=== PATIENT | female | born 1940 | race African-American/Black ===

== ENCOUNTER 2023-11-24 13:50 | Outpatient (AMB) | payer MEDICARE, SELFPAY ==
--- NOTE | 2023-11-24 14:06 | HO.NEPHOV ---
Vital Signs 11/24/23 14:17 Height 5 ft 10 in Weight 167 lb 4 oz BMI 24.0 BP 138/64 Blood Pressure Location Lt brachial Position Sitting Pulse 74 Pulse Source Pulse Oximeter Pulse Oximetry (%) 98 Oxygen Delivery Method Room Air Intake Visit Reasons: Continuing care-CKD/ Confirmed Phlebotomist Supervisor/Instructor Required: No Accompanied by: Self / Same As Patient Allergies No Known Allergies Allergy (Verified 11/24/23 14:15) HPI Comments Details: Dominga is a pleasant 83-year-old woman with a history of CKD 3 in a setting of longstanding diabetes mellitus hypertension. From renal standpoint she has been doing well. She has been diagnosed with an neuropathy. Blood sugar has been well controlled. [facility] Family History Brother Diabetes Mother Diabetes Hypertension Father Hypertension Physical Exam Vital Signs: Last Vital Signs Pulse 74 11/24/23 14:17 BP 138/64 11/24/23 14:17 Pulse Ox 98 11/24/23 14:17 Oxygen Delivery Method Room Air 11/24/23 14:17 BMI result Body Mass Index 24.0 Const General: comfortable Nutritional Appearance: well nourished Orientation/consciousness: patient oriented x3 HEENT Head: No normal to inspection Mouth: moist mucous membranes Neck Neck: Yes supple and Yes no JVD Resp Auscultation: clear to auscultation bilaterally, no rales and rub present Cardio Jugular venous distension: no JVD Palpation: no palpable S3 and no palpable S4 Heart sounds: no rubs GI Palpation (GI): Soft to palpation and nontender Percussion: No Fluid wave present General: Yes no CVA tenderness Back/Spine/Pelvis Back: no CVA tenderness Skin General skin exam: no rashes or lesions noted Neuro General: patient oriented x3 Extrem General: Yes no pedal edema and No clubbing Results Reviewed Results Reviewed: Labs pending Nephrology Results: No Data to Display Assessment & Plan Assessment & Plan (1) CKD (chronic kidney disease): Code(s): N18.9 - Chronic kidney disease, unspecified Category: Medical Plan Rj has stage 3 chronic kidney disease in the setting of longstanding diabetes mellitus and hypertension. Overall renal function has been stable to baseline. Recent creatinine is around 1.5 mg/dL. Continue with low dose of losartan for renal protection. History of hypertension Blood pressure is well controlled. Continue to avoid hypotension. 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 Seen by Hematology Mild anemia no absolute indication for Epogen yet. Orders: Orders UA and rflx microscopic 5 Months N18.9 - Chronic kidney disease, unspecified Complete Blood Count Auto Diff 5 Months N18.30 - Chronic kidney disease, stage 3 unspecified, N18.9 - Chronic kidney disease, unspecified Creatinine Urine 5 Months N05.9 - 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, N18.9 - Chronic kidney disease, unspecified Basic Metabolic Panel 5 Months N18.9 - Chronic kidney disease, unspecified Total Protein Urine Random 5 Months N18.9 - Chronic kidney disease, unspecified Coding Level of Care Code Est Pt Level 4 (98082) Diagnoses CKD (chronic kidney disease) N18.9
[2023-11-24 14:17] VITALS: BP 138/64; PULSE 74; O2SAT 98; BMI 24.0
== END 2023-11-24 14:28 | disposition home or self-care (01) ==
LOC: HO.HKAE 13:50
PROVIDERS: PCP Internal Medicine Pulmonary Disease; Referring Provider Internal Medicine Pulmonary Disease; Visit Provider Internal Medicine Hypertension Specialist
DX: N18.9 Chronic kidney disease, unspecified (principal)
CPT/HCPCS: 99214

== ENCOUNTER → 2023-11-24 13:50 | Outpatient (BNVA) | payer MEDICARE, SELFPAY | PROVIDERS: PCP Internal Medicine Pulmonary Disease; Referring Provider Internal Medicine Pulmonary Disease; Visit Provider Internal Medicine Hypertension Specialist | DX: E11.22 Type 2 diabetes mellitus with diabetic chronic kidney disease (principal); I12.9 Hypertensive chronic kidney disease with stage 1 through stage 4 chronic kidney disease, or unspecified chronic kidney disease; N18.30 Chronic kidney disease, stage 3 unspecified | CPT/HCPCS: 99212 ==

== ENCOUNTER 2024-04-26 13:25 | Outpatient (AMB) | payer MEDICARE, SELFPAY ==
[2024-04-26 13:33] VITALS: BP 118/56; PULSE 60; O2SAT 98; BMI 24.2
--- NOTE | 2024-04-26 13:33 | HO.NEPHOV_ITS ---
Vital Signs 04/26/24 13:33 Height 5 ft 10 in Weight 169 lb BMI 24.2 BP 118/56 L Blood Pressure Location Lt brachial Position Sitting Pulse 60 Pulse Source Pulse Oximeter Pulse Oximetry (%) 98 Oxygen Delivery Method Room Air Intake Visit Reasons: Follow up, Oct Aging Department Supervisor Required: No Accompanied by: Self / Same As Patient Allergies No Known Allergies Allergy (Verified 04/26/24 13:36) Medication List - Last Reconciled 04/26/24 by Inocencio Avila MD atorvastatin 20 mg PO DAILY empagliflozin (Jardiance) 10 mg PO DAILY ferrous sulfate 325 mg PO DAILY glipizide ER 10 mg PO DAILY losartan 25 mg PO DAILY propranolol 20 mg PO BID sitagliptin phosphate (Januvia) 50 mg PO DAILY triamterene 18.75 mg PO DAILY HPI Comments Details: Dominga is a pleasant 83-year-old woman with a history of CKD 3 in a setting of longstanding diabetes mellitus hypertension. From renal standpoint she has been doing well. She has been diagnosed with an neuropathy. Blood sugar has been well controlled. 04/26/24 Jardiance has been added around January 2024 Recent A1C was 8.2% [facility] Family History Brother Diabetes Mother Diabetes Hypertension Father Hypertension Physical Exam Vital Signs: Last Vital Signs Pulse 60 04/26/24 13:33 Pulse Ox 98 04/26/24 13:33 Oxygen Delivery Method Room Air 04/26/24 13:33 BMI result Body Mass Index 24.2 Const General: comfortable; No acute distress Orientation/consciousness: patient oriented x3 Eyes General: appearance normal, both eyes and all related structures Visual Hernandez: normal visual hernandez by confrontation Neck Neck: Yes supple and Yes no JVD Resp Effort & Inspection: normal respiratory effort and respiratory effort not decreased Auscultation: rhonchi Cardio Palpation: no palpable S3 and no palpable S4 Heart sounds: no rubs GI Inspection: Yes normal to inspection Palpation (GI): Soft to palpation Percussion: Yes normal to percussion Auscultation: normal bowel sounds General: Yes no CVA tenderness Back/Spine/Pelvis Back: no CVA tenderness Skin General skin exam: no petechiae and no purpura Neuro General: patient oriented x3 and no focal motor deficits Extrem General: No clubbing and No edema Results Reviewed Results Reviewed: Cr 1.3 Nephrology Results: No Data to Display Assessment & Plan Assessment & Plan (1) CKD (chronic kidney disease): Code(s): N18.9 - Chronic kidney disease, unspecified Category: Medical Plan Dominga has stage 3 chronic kidney disease in the setting of longstanding diabetes mellitus and hypertension. Overall renal function has been stable to baseline. Recent creatinine is around 1.6 mg/dL. Continue with low dose of losartan for renal protection. History of hypertension Blood pressure is well controlled. Continue to avoid hypotension. 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 Seen by Hematology Mild anemia no absolute indication for Epogen yet. Recent HgB is 11.4gm/dL Orders: Orders Complete Blood Count Auto Diff 6 Months N18.9 - Chronic kidney disease, unspecified Basic Metabolic Panel 6 Months N18.9 - Chronic kidney disease, unspecified Coding Level of Care Code Est Pt Level 4 (26421) Diagnoses CKD (chronic kidney disease) N18.9
== END 2024-04-26 13:49 | disposition home or self-care (01) ==
LOC: HO.HKAE 13:25
PROVIDERS: PCP Internal Medicine Pulmonary Disease; Visit Provider Internal Medicine Hypertension Specialist
DX: I12.9 Hypertensive chronic kidney disease with stage 1 through stage 4 chronic kidney disease, or unspecified chronic kidney disease (principal); E11.22 Type 2 diabetes mellitus with diabetic chronic kidney disease; N18.30 Chronic kidney disease, stage 3 unspecified
CPT/HCPCS: 99214

== ENCOUNTER → 2024-04-26 13:25 | Outpatient (BNVA) | payer MEDICARE, SELFPAY | PROVIDERS: PCP Internal Medicine Pulmonary Disease; Visit Provider Internal Medicine Hypertension Specialist | DX: E11.22 Type 2 diabetes mellitus with diabetic chronic kidney disease (principal); I12.9 Hypertensive chronic kidney disease with stage 1 through stage 4 chronic kidney disease, or unspecified chronic kidney disease; N18.30 Chronic kidney disease, stage 3 unspecified | CPT/HCPCS: 99212 ==

== ENCOUNTER 2024-10-25 13:23 | Outpatient (AMB) | payer MEDICARE, SELFPAY ==
[2024-10-25 13:30] VITALS: BP 118/68; PULSE 62; O2SAT 98; BMI 24.6
--- NOTE | 2024-10-25 13:30 | HO.NEPHOV ---
Vital Signs 10/25/24 13:30 Height 5 ft 10 in Weight 171 lb 4 oz BMI 24.6 BP 118/68 Blood Pressure Location Rt brachial Position Sitting Pulse 62 Pulse Source Pulse Oximeter Pulse Oximetry (%) 98 Oxygen Delivery Method Room Air Intake Visit Reasons: 6mon follow up/ Conf Allergies No Known Allergies Allergy (Verified 10/25/24 13:32) Medication List - Last Reconciled 10/25/24 by Inocencio Avila MD atorvastatin 20 mg PO DAILY empagliflozin (Jardiance) 10 mg PO DAILY ferrous sulfate 325 mg PO DAILY glipizide ER 10 mg PO DAILY losartan 25 mg PO DAILY propranolol 20 mg PO BID sitagliptin phosphate (Januvia) 50 mg PO DAILY triamterene 18.75 mg PO DAILY HPI Comments Details: Dominga is a pleasant 83-year-old woman with a history of CKD 3 in a setting of longstanding diabetes mellitus hypertension. From renal standpoint she has been doing well. She has been diagnosed with an neuropathy. Blood sugar has been well controlled. 04/26/24 Jardiance has been added around January 2024;Recent A1C was 8.2% 10/25/24 Here for follow up. Doing Ok. Recently has a fall and went to ER [facility] Family History Brother Diabetes Mother Diabetes Hypertension Father Hypertension Physical Exam Vital Signs: Last Vital Signs Pulse 62 10/25/24 13:30 BP 118/68 10/25/24 13:30 Pulse Ox 98 10/25/24 13:30 Oxygen Delivery Method Room Air 10/25/24 13:30 BMI result Body Mass Index 24.6 No orthostatic BP changes Const General: comfortable; No acute distress Orientation/consciousness: patient oriented x3 Eyes General: appearance normal, both eyes and all related structures Visual Hernandez: normal visual hernandez by confrontation Neck Neck: Yes supple and Yes no JVD Resp Effort & Inspection: normal respiratory effort and respiratory effort not decreased Cardio Palpation: no palpable S3 and no palpable S4 Heart sounds: no rubs GI Inspection: Yes normal to inspection Palpation (GI): Soft to palpation Percussion: Yes normal to percussion Auscultation: normal bowel sounds General: Yes no CVA tenderness Back/Spine/Pelvis Back: no CVA tenderness Skin General skin exam: no petechiae and no purpura Neuro General: patient oriented x3 and no focal motor deficits Extrem General: No clubbing and No edema Results Reviewed Nephrology Results: No Data to Display Assessment & Plan Assessment & Plan (1) CKD (chronic kidney disease): Code(s): N18.9 - Chronic kidney disease, unspecified Category: Medical Plan Dominga has stage 3 chronic kidney disease in the setting of longstanding diabetes mellitus and hypertension. Overall renal function has been stable to baseline. Recent creatinine is around 1.5 mg/dL. Continue with low dose of losartan for renal protection. Stay on Jardiance History of hypertension Blood pressure is well controlled. Continue to avoid hypotension. 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 Seen by Hematology Mild anemia no absolute indication for Epogen yet. Recent HgB is 10.4gm/dL No changes were made Coding Level of Care Code Est Pt Level 4 (08980) Diagnoses CKD (chronic kidney disease) N18.9
--- OUTSIDE RECORDS SUMMARY | 2024-10-25 15:48 | XMS_ITS | Clinical Summary ---
Author Organization [facility] Address [address] [place] [address] Phone Care Team Providers Care Lap Regulator Name Role Phone Gold Callaway MD Primary Care Provider [phone] Allergies No known active allergies Medications atorvastatin (LIPITOR) 20 mg tablet Take 20 mg by mouth daily. 01/31/2021 Active ferrous sulfate 143 mg (45 mg iron) tablet extended release Take 143 mg by mouth daily. Active glipiZIDE (GLUCOTROL XL) 10 mg 24 hr tablet Take 1 tablet (10 mg total) by mouth daily. 04/07/2022 Active losartan (COZAAR) 50 mg tablet Take 25 mg by mouth daily. 01/06/2021 Active meclizine (ANTIVERT) 25 mg tablet Take 1 tablet (25 mg total) by mouth every 6 (six) hours as needed for dizziness. 02/13/2021 Active triamterene-hyd roCHLOROthiazid e (MAXZIDE-25) 37.5-25 mg per tablet Take 1 tablet by mouth daily. 11/17/2020 Active propranoloL (INDERAL) 20 mg tablet Take 1 tablet (20 mg total) by mouth 2 (two) times a day. 02/13/2021 Active multivitamin (MULTIPLE VITAMINS ORAL) Take by mouth. 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 Encounters Date Type Department Care Team Description 09/13/2024 4:13 PM EDT - 09/13/2024 7:04 PM EDT Emergency [facility] Emergency [address] [place] [id number] Cal Craig MD Lightheadedness (Primary Dx); Dehydration Discharge Disposition: Home or Self Care 08/12/2024 12:06 PM EST - 08/12/2024 1:37 PM EST Emergency [facility] Emergency [address] [place] [id number] Tristan Guerrero DO Contusion of face, initial encounter (Primary Dx) Discharge Disposition: Home or Self Care from Last 3 Months Medical History Medical History Date Comments Diabetes mellitus ([facility] V24, [facility] V28) Hypertension Renal disorder Renal disorder DX:Renal disorde r Hypertension DX:Hypertension Diabetes mellitus ([facility] V24, [facility] V28) DX:Diabetes mellitus ([facility]) Social History Tobacco Use Types Packs/Day Years Used Date Smoking Tobacco: Never Smokeless Tobacco: Never Tobacco Cessation:Counseling Given: Not Answered Alcohol Use Standard Drinks/Week Comments Never 0 (1 standard drink = 0.6 oz pur e alcohol) Comments Unknown Sex and Gender Information Value Date Recorded Sex Assigned at Female 08/12/2024 12:36 PM EST Legal Sex Female 10:51 AM EST Gender Identity Female 08/12/2024 12:36 PM EST Sexual Orientation Straight 09/13/2024 5: 39 PM EDT Obstetrics History Last Filed Vital Signs Vital Sign Reading Time Taken Comments Blood Pressure 144/63 09/13/2024 7:04 PM EDT Pulse 70 09/13/2024 4:15 PM EDT Temperature 36.9 ??C (98.5 ??F) 09/13/2024 4:15 PM ED T Respiratory Rate 18 09/13/2024 4:15 PM EDT Oxygen Saturation 100% 09/13/2024 4:15 PM EDT Inhaled Oxygen Concentration - - Weight 77.1 kg (170 lb) 09/13/2024 4:15 PM EDT Height 177.8 cm (5' 10 ) 09/13/2024 4:15 PM EDT Body Mass Index 24.39 09/13/2024 4:15 PM EDT Plan of Treatment Health Maintenance Due Date Last Done Comments Diabetes: Annual Foot Exam 1950 Diabetes: Annual Retina Eye Exam 1950 DTaP,Tdap,and Td Vaccines (1 - Tdap) 1958 RSV Immunization Adult Patients (1 - 1-dose 75+ series) 2014 Pneumococcal Vaccine: 50+ Years (2 of 2 - PPSV23) 05/07/2020 03/12/2020 Depression Screening 06/11/2022 Falls Risk Assessment 06/11/2022 Medicare Annual Wellness Visit 06/11/2022 Osteoporosis Screening (Bone Density Screening) 06/11/2022 Social Influencers of Health Screening 06/11/2022 Diabetes: Annual Urine Albumin-Creatinine Ratio (uACR) 06/12/2022 08/13/2020, 08/10/2019, 06/13/2019 COVID-19 Vaccine ( season) 2024 04/03/2024, 04/17/2022, 11/19/2021, Additional history exists Diabetes: Blood Sugar Control Test (HGBA1C) 11/20/2024 05/23/2024, 01/18/2024, 08/10/2019, Additional history exists Influenza Vaccine (Season Ended) 2025 04/06/2023, 03/30/2022, 04/02/2021, Additional history exists Cholesterol Screening (Lipid Panel) 08/13/2025 08/13/2020, 08/10/2019, 10/08/2017 Diabetes: Annual GFR (Glomerular Filtration Rate) 09/13/2025 09/13/2024, 04/20/2024, 04/20/2024, Additional history exists Zoster Vaccines Completed 12/01/2023, 09/24/2023 HIB Vaccines Aged Out No longer eligi ble based on patient's age to complete this topic HPV Vaccines Aged Out No longer eligi ble based on patient's age to complete this topic Hepatitis A Vaccines Aged Out No long er eligible based on patient's age to complete this topic Hepatitis B Vaccines Aged Out No long er eligible based on patient's age to complete this topic IPV Vaccines Aged Out No longer eligi ble based on patient's age to complete this topic MMR Vaccines Aged Out No longer eligi ble based on patient's age to complete this topic Meningococcal ACWY Vaccine Aged Out N o longer eligible based on patient's age to complete this topic Meningococcal B Vaccine Aged Out No l onger eligible based on patient's age to complete this topic RSV Immunization Patients Under 20 months Aged Out No longer eligible based on patient's age to complete this topic Varicella Vaccines Aged Out No longer eligible based on patient's age to complete this topic Procedures Procedure Name Priority Date/Time Associated Diagnosis Comments URINALYSIS WITH REFLEX MICROSCOPIC AND CULTURE STAT 09/13/2024 5:51 PM EDT URINALYSIS WITH REFLEX MICROSCOPIC AND CULTURE STAT 09/13/2024 5:51 PM EDT RHYTHM ECG, REPORT Routine 09/13/2024 5: 37 PM EDT CBC WITH AUTO DIFFERENTIAL STAT 09/13/2024 4:27 PM EDT TROPONIN I HIGH SENSITIVITY STAT 09/13/2024 4:27 PM EDT COMPREHENSIVE METABOLIC PANEL STAT 09/13/2024 4:27 PM EDT CBC AND DIFFERENTIAL STAT 09/13/2024 4:27 PM EDT POCT GLUCOSE BLOOD Routine 09/13/2024 4: 26 PM EDT [id number], RSV, FLU A AND B QUALITATIVE RT-PCR, INTERNAL LAB STAT 09/13/2024 4:26 PM EDT ECG 12-LEAD Routine 09/13/2024 4:[address] MAXILLOFACIAL WO CONTRAST STAT 08/12/2024 12:[address] HEAD WO CONTRAST STAT 08/12/2024 1 2:36 PM EST from Last 3 Months Results * (ABNORMAL) Urinalysis with reflex microscopic and culture (09/13/2024 5:51 PM EDT) Color, Urine Yellow Colorless, Yellow LAB URINALYSIS - AUTOMATED METHOD 09/13/2024 5:58 PM EDT [facility] Clarity, Urine Clear Clear LAB URINALYSIS - AUTOMATED METHOD [facility]24 [facility] Specific [place] Urine 1.010 1.005 - 1.030 LAB URINALYSIS - AUTOMATED METHOD 09/13/2024 5:58 [facility] pH, Urine 5.5 5.0 - 8.0 pH LAB URINALYSIS - AUTOMATED METHOD 09/13/2024 5:58 PM [facility] Leukocytes, Urine Negative Negative WBCs/mcL LAB URINALYSIS - AUTOMATED METHOD 09/13/2024 5:58 PM [facility] Nitrite, Urine Negative Negative LAB URINALYSIS - AUTOMATED METHOD 09/13/2024 5:58 [facility] Protein, Urine Negative Negative mg/dL LAB URINALYSIS - AUTOMATED METHOD 09/13/2024 5:58 PM [facility] Glucose, Urine >=1000(A) Negative mg/dL LAB URINALYSIS - AUTOMATED METHOD 09/13/2024 5:58 PM [facility] Ketones, Urine Negative Negative mg/dL LAB URINALYSIS - AUTOMATED METHOD 09/13/2024 5:58 PM [facility] Blood, Urine Negative Negative mg/dL LAB URINALYSIS - AUTOMATED METHOD 09/13/2024 5:58 PM [facility] Urine Urine specimen obtained by clean catch procedure / Unknown Non-blood Collection / Unknown 09/13/2024 5:51 PM EDT 09/13/2024 5:54 PM EDT us Cal Craig MD LAB URINE ORDERABLES Final Resu lt [facility] [address] [place] [address], [place] [phone] * RHYTHM ECG, REPORT (09/13/2024 5:37 PM EDT) Cal Ervin MD - 09/13/2024 5:37 PM EDT Cal Craig MD ? 09/13/2024 ??6:43 PM ECG Rhythm Interpretation and Report Date/Time: 09/13/2024 5:37 PM Performed by: Cal Craig MD Authorized by: Cal Craig MD ?? ECG interpreted by ED Physician in the absence of a oil and gas recruiter: yes ?? Rate: ??ECG rate: ??65 ??ECG rate assessment: normal ?? Rhythm: ??Rhythm: sinus rhythm ?? Ectopy: ??Ectopy: none ?? QRS: ??QRS axis: ??Normal ??QRS intervals: ??Normal ??QRS conduction: normal ?? ST segments: ??ST segments: ??Normal T waves: ??T waves: normal ?? Q waves: ??Abnormal Q-waves: not present ?? Other findings: ??Other findings: LVH ?? us Cal Craig MD ECG ORDERABLES Final Result * Troponin I high sensitivity (09/13/2024 4:27 PM EDT) Pathologist [facility] High Sensitivity Troponin I 6 0 - 14 ng/L LAB CHEMISTRY METHOD 09/13/2024 4:59 PM EDT [facility] Blood Venous blood specimen / Unknown Venipuncture / Unknown 09/13/2024 4:27 PM EDT 09/13/2024 4:31 PM EDT Narrative [facility] - 09/13/2024 4:59 PM EDT HSTnI results stratify to HIGH RISK category if any value >100 ng/L or delta at 1 hour is greater than or equal to 15 ng/L (male and female). Note: Delta values are not applicable if symptoms began more than 12 hours pre-arrival. Risk stratification should include the calculation of the HEART score. Testing performed using [employer] Access AccuTnI+3 Assay. us Cal Craig MD LAB BLOOD ORDERABLES Final Resu lt [facility] [address] [place] [address], [place] [phone] * (ABNORMAL) CBC auto differential (09/13/2024 4:27 PM EDT) [facility] WBC 5.9 4.0 - 10.5 K/mcL LAB HEMETOLOGY METHOD 09/13/2024 4:35 PM EDT [facility] RBC 3.87(L) 4.20 - 5.40 M/mcL LAB HEMETOLOGY METHOD 09/13/2024 4:35 PM EDT [facility] Hemoglobin 11.3(L) 12.5 - 16.0 g/dL LAB HEMETOLOGY METHOD 09/13/2024 4:35 PM EDT [facility] Hematocrit 34.8(L) 37.0 - 47.0 % LAB HEMETOLOGY METHOD 09/13/2024 4:35 PM EDT [facility] MCV 89.9 78.0 - 100.0 FL LAB HEMETOLOGY METHOD 09/13/2024 4:35 PM EDT [facility] MCH 29.2 25.0 - 33.0 pcg LAB HEMETOLOGY METHOD 09/13/2024 4:35 PM EDT [facility] MCHC 32.5 32.0 - 36.0 g/dL LAB HEMETOLOGY METHOD 09/13/2024 4:35 PM EDT [facility] RDW 12.7 12.1 - 16.2 % LAB HEMETOLOGY METHOD 09/13/2024 4:35 PM [facility] Platelets 195 150 - 450 K/mcL LAB HEMETOLOGY METHOD 09/13/2024 4:35 PM [facility] MPV 11.5(H) 7.4 - 11.4 FL LAB HEMETOLOGY METHOD 09/13/2024 4:35 PM [facility] Neutrophils Relative 62.0 44.0 - 74.0 % LAB HEMETOLOGY METHOD 09/13/2024 4:35 PM [facility] Lymphocytes Relative 26.3 20.0 - 48.0 % LAB HEMETOLOGY METHOD 09/13/2024 4:35 PM [facility] Monocytes Relative 6.8 2.0 - 12.0 % LAB HEMETOLOGY METHOD 09/13/2024 4:35 PM [facility] Eosinophils Relative 4.3 0.0 - 6.0 % LAB HEMETOLOGY METHOD 09/13/2024 4:35 PM [facility] Basophils Relative 0.3 0.0 - 2.0 % LAB HEMETOLOGY METHOD 09/13/2024 4:35 PM [facility] Neutrophils Absolute 3.63 1.80 - 7.80 K/mcL LAB HEMETOLOGY METHOD 09/13/2024 4:35 PM [facility] Lymphocytes Absolute 1.54 1.00 - 3.20 K/mcL LAB HEMETOLOGY METHOD 09/13/2024 4:35 PM [facility] Monocytes Absolute 0.40 0.00 - 0.80 K/mcL LAB HEMETOLOGY METHOD 09/13/2024 4:35 PM [facility] Eosinophils Absolute 0.25 0.00 - 0.50 K/mcL LAB HEMETOLOGY METHOD 09/13/2024 4:35 PM EDT [facility] Basophils Absolute <0.03 0.00 - 0.20 K/mcL LAB HEMETOLOGY METHOD 09/13/2024 4:35 PM EDT [facility] Blood Venous blood specimen / Unknown Venipuncture / Unknown 09/13/2024 4:27 PM EDT 09/13/2024 4:31 PM EDT us Cal Craig MD LAB BLOOD ORDERABLES Final Resu lt [facility] [address] [place] [address], [place] [phone] * (ABNORMAL) Comprehensive metabolic panel (09/13/2024 4:27 PM EDT) Sodium 135 135 - 145 mmol/L LAB CHEMISTRY METHOD 09/13/2024 4:51 PM [facility] Potassium 3.8 3.5 - 5.1 mmol/L LAB CHEMISTRY METHOD 09/13/2024 4:51 PM [facility] Chloride 99 98 - 107 mmol/L LAB CHEMISTRY METHOD 09/13/2024 4:51 PM [facility] CO2 29 24 - 32 mmol/L LAB CHEMISTRY METHOD 09/13/2024 4:51 PM [facility] Anion Gap 7 5 - 14 LAB CHEMISTRY METHOD 09/13/2024 4:51 PM [facility] Glucose 279(H) 70 - 199 mg/dL LAB CHEMISTRY METHOD 09/13/2024 4:51 PM [facility] BUN 34(H) 7 - 17 mg/dL LAB CHEMISTRY METHOD 09/13/2024 4:51 PM [facility] Creatinine 1.48(H) 0.50 - 1.00 mg/dL LAB CHEMISTRY METHOD 09/13/2024 4:51 PM [facility] eGFR 35(L) >=60 mL/min/1. 73m2 LAB CHEMISTRY METHOD 09/13/2024 4:51 PM [facility] Comment:Calculation based on the??Chronic Kidney Disease Epidemiology Collaboration (CKD-EPI) equation refit??without adjustment for race. BUN/Creatinine Ratio 23.0(H) 12.0 - 20.0 LAB CHEMISTRY METHOD 09/13/2024 4:51 PM [facility] Calcium 10.0 8.4 - 10.2 mg/dL LAB CHEMISTRY METHOD 09/13/2024 4:51 PM [facility] AST (SGOT) 26 5 - 40 unit/L LAB CHEMISTRY METHOD 09/13/2024 4:51 PM [facility] ALT (SGPT) 16 7 - 52 unit/L LAB CHEMISTRY METHOD 09/13/2024 4:51 PM [facility] Alkaline Phosphatase 82 34 - 104 unit/L LAB CHEMISTRY METHOD 09/13/2024 4:51 PM [facility] Total Protein 7.6 6.4 - 8.5 g/dL LAB CHEMISTRY METHOD 09/13/2024 4:51 PM [facility] Albumin 4.2 3.5 - 5.0 g/dL LAB CHEMISTRY METHOD 09/13/2024 4:51 PM [facility] Total Bilirubin 0.8 0.3 - 1.0 mg/dL LAB CHEMISTRY METHOD 09/13/2024 4:51 PM [facility] Blood Venous blood specimen / Unknown Venipuncture / Unknown 09/13/2024 4:27 PM EDT 09/13/2024 4:31 PM EDT Cal Craig MD LAB BLOOD ORDERABLES Final Resu lt [facility] [address] [place] [address], [place] [phone] * [id number], RSV, Influenza A and B qualitative RT-PCR (09/13/2024 4:26 PM EDT) Influenza A PCR Negative Negative LAB MOLECULAR DIAGNOSTICS METHOD 09/13/2024 5:11 PM EDT [facility] Influenza B PCR Negative Negative LAB MOLECULAR DIAGNOSTICS METHOD 09/13/2024 5:11 PM EDT [facility] RSV PCR Negative Negative LAB MOLECULAR DIAGNOSTICS METHOD 09/13/2024 5:11 PM EDT [facility] SARS COV-2 Negative Negative LAB MOLECULAR DIAGNOSTICS METHOD 09/13/2024 5:11 PM EDT [facility] Swab Nasopharyngeal structure / Unknown Non-blood Collection / Unknown 09/13/2024 4:26 PM EDT 09/13/2024 4:32 PM EDT Narrative [facility] - 09/13/2024 5:11 PM EDT This test has been authorized by FDA under an emergency used authorization (EUA). This EUA will cease to be effective when declared by [facility] that circumstances exist to justify its termination under section 564(bB)(2) of the Federal Food, Drug, and Cosmetic Act (The Act) 21 U.S.C. 360bbb 30,or when the EUA is revoked under section 564 (g) of the Act. Testing was performed using the [employer] Xpert Xpress SARS-CoV2/FLU/RSV test. Negative results do not preclude SARS COV-2 test infection and should not be used as a sole basis for treatment or other patient management decisions. Negative results must be combined with clinical observation, patient history, and epidemiological information. Cal Craig MD LAB MICROBIOLOGY - GENERAL ORDE ELE Final Result Performing Organization Address City/[facility]/ZIP Co de Phone Number [facility] [address] [place] [address], [place] [phone] * (ABNORMAL) POCT Glucose, blood (09/13/2024 4:26 PM EDT) [facility] Glucose POCT 255(H) 70 - 199 mg/dL 09/13/2024 4:26 PM EDT [facility] Comment: Glucose Reference Range: Normal fasting 70 mg/dL - 99 mg/dL Non-fasting 70 mg/dL - 199 mg/dL Blood Capillary blood specimen / Unknown 09/13/2024 4:26 PM EDT 09/13/2024 4:28 PM EDT Generic Provider Poct LAB POINT OF CARE TEST DOCKED DEVICE UNSOLICITED RESULTS Final Result Performing Organization Address [facility]/ZIP Co de Phone Number [facility] [address] [place] [address], [place] [phone] * ECG 12 lead (09/13/2024 4:21 PM EDT) [facility] Ventricular Rate ECG 65 BPM GEMUSE Atrial Rate 65 BPM GEMUSE P-R Interval 180 ms GEMUSE QRS Duration 88 ms GEMUSE Q-T Interval 390 ms GEMUSE QTc 405 ms GEMUSE P Wave [place] 73 degrees GEMUSE R [place] 34 degrees GEMUSE T [place] 44 degrees GEMUSE ECG Interpretation Normal sinus rhythm Minimal voltage criteria for LVH, may be normal variant Borderline ECG When compared with ECG of 25-JAN-2023 14:55, No significant change was found Confirmed by Aristides Serrano ([id number]) on 09/15/2024 3:28:48 PM GEMUSE 09/13/2024 4:21 PM EDT 09/15/2024 3:28 PM EDT Cal Craig MD ECG ORDERABLES Final Result GEMUSE * CT Maxillofacial wo Contrast (08/12/2024 12:36 PM EST) Anatomical Region Laterality Modality Head and Neck Computed Tomogra phy 08/12/2024 1:12 PM EST Impressions 08/12/2024 1:19 PM EST Minimal left periorbital soft tissue swelling without acute traumatic abnormality of the brain or facial bones. Report reviewed and signed by : Dr. Salvatore Brice on 08/12/2024 1:19 PM. Workstation Name - [id number] -------- FINAL REPORT -------- Dictated By: Salvatore Brice Dictated Date: 08/12/2024 13:12 ET Assigned Physician: Salvatore Brice Reviewed and Electronically Signed By: Salvatore Brice Signed Date: 08/12/2024 13:19 ET Workstation ID: [id number] Transcribed By: Self Edit Transcribed Date: 08/12/2024 13:12 ET Narrative 08/12/2024 1:19 PM EST EXAMINATION: CT MAXILLOFACIAL WO CONTRAST, CT HEAD WO CONTRAST INDICATION INFORMATION: Fall, hit left outer orbital bone on concrete COMPARISON: Noncontrast head CT 01/25/2023 TECHNIQUE: Separate noncontrast CT examinations of the head and face were performed. Coronal and sagittal images were created for each examination at the technologist workstation. This CT examination was performed using dose optimization techniques as appropriate, variously including the following: *Automated exposure control *Adjustment of mA and/or kV according to patient size (this includes techniques or standardized protocols for targeted exams where dose is matched to indication/reason for exam; i.e. extremities or head) *Use of iterative reconstruction technique DLP: 805 mGy-cm FINDINGS: Head: No acute osseous or soft tissue abnormality. The mastoid air cells and visualized portions of the paranasal sinuses are well aerated. There is no evidence of acute intracranial hemorrhage or territorial infarction. No abnormal mass effect or midline shift is seen. Cash to white matter differentiation is well preserved. No extra-axial fluid collections are identified. No hydrocephalus. No significant volume loss. There is no abnormal attenuation within the brain parenchyma. ??Mild calcific intracranial atherosclerosis. Facial Bones: Minimal left periorbital soft tissue swelling. ??There is no evidence of an acute facial bone fracture. The paranasal sinuses are well aerated. ??Partially edentulous. ??No significant dental disease is visualized. The orbits are unremarkable in appearance. Procedure Note Salvatore Brice MD - 08/12/2024 EXAMINATION: CT MAXILLOFACIAL WO CONTRAST, CT HEAD WO CONTRAST INDICATION INFORMATION: Fall, hit left outer orbital bone on concrete COMPARISON: Noncontrast head CT 01/25/2023 TECHNIQUE: Separate noncontrast CT examinations of the head and face were performed.Coronal and sagittal images were created for each examination at the[employer] workstation. This CT examination was performed using dose optimization techniques asappropriate, variously including the following: *Automated exposure control *Adjustment of mA and/or kV according to patient size (this includestechniques or standardized protocols for targeted exams where dose ismatched to indication/reason for exam; i.e. extremities or head) *Use of iterative reconstruction technique DLP: 805 mGy-cm FINDINGS: Head: No acute osseous or soft tissue abnormality. The mastoid air cells andvisualized portions of the paranasal sinuses are well aerated. There is no evidence of acute intracranial hemorrhage or territorialinfarction. No abnormal mass effect or midline shift is seen. Cash towhite matter differentiation is well preserved. No extra-axial fluidcollections are identified. No hydrocephalus. No significant volume loss. There is no abnormalattenuation within the brain parenchyma. Mild calcific intracranialatherosclerosis. Facial Bones: Minimal left periorbital soft tissue swelling. There is no evidence of anacute facial bone fracture. The paranasal sinuses are well aerated.Partially edentulous. No significant dental disease is visualized. Theorbits are unremarkable in appearance. IMPRESSION: Minimal left periorbital soft tissue swelling without acute traumaticabnormality of the brain or facial bones. Report reviewed and signed by : Dr. Salvatore Brice on 08/12/2024 1:19 PM.Workstation Name - [id number] -------- FINAL REPORT -------- Dictated By: Salvatore Brice Dictated Date: 08/12/2024 13:12 ET Assigned Physician: Salvatore Brice Reviewed and Electronically Signed By: Salvatore Brice Signed Date: 08/12/2024 13:19 ET Workstation ID: [id number] Transcribed By: Self Edit Transcribed Date: 08/12/2024 13:12 ET Tristan Guerrero DO IMG CT PROCEDURES Final Resul t * CT Head wo Contrast (08/12/2024 12:36 PM EST) Anatomical Region Laterality Modality Head and Neck Computed Tomogra phy 08/12/2024 1:12 PM EST Impressions 08/12/2024 1:19 PM EST Minimal left periorbital soft tissue swelling without acute traumatic abnormality of the brain or facial bones. Report reviewed and signed by : Dr. Salvatore Brice on 08/12/2024 1:19 PM. Workstation Name - [id number] -------- FINAL REPORT -------- Dictated By: Salvatore Brice Dictated Date: 08/12/2024 13:12 ET Assigned Physician: Salvatore Brice Reviewed and Electronically Signed By: Salvatore Brice Signed Date: 08/12/2024 13:19 ET Workstation ID: [id number] Transcribed By: Self Edit Transcribed Date: 08/12/2024 13:12 ET Narrative 08/12/2024 1:19 PM EST EXAMINATION: CT MAXILLOFACIAL WO CONTRAST, CT HEAD WO CONTRAST INDICATION INFORMATION: Fall, hit left outer orbital bone on concrete COMPARISON: Noncontrast head CT 01/25/2023 TECHNIQUE: Separate noncontrast CT examinations of the head and face were performed. Coronal and sagittal images were created for each examination at the technologist workstation. This CT examination was performed using dose optimization techniques as appropriate, variously including the following: *Automated exposure control *Adjustment of mA and/or kV according to patient size (this includes techniques or standardized protocols for targeted exams where dose is matched to indication/reason for exam; i.e. extremities or head) *Use of iterative reconstruction technique DLP: 805 mGy-cm FINDINGS: Head: No acute osseous or soft tissue abnormality. The mastoid air cells and visualized portions of the paranasal sinuses are well aerated. There is no evidence of acute intracranial hemorrhage or territorial infarction. No abnormal mass effect or midline shift is seen. Cash to white matter differentiation is well preserved. No extra-axial fluid collections are identified. No hydrocephalus. No significant volume loss. There is no abnormal attenuation within the brain parenchyma. ??Mild calcific intracranial atherosclerosis. Facial Bones: Minimal left periorbital soft tissue swelling. ??There is no evidence of an acute facial bone fracture. The paranasal sinuses are well aerated. ??Partially edentulous. ??No significant dental disease is visualized. The orbits are unremarkable in appearance. Procedure Note Salvatore Brice MD - 08/12/2024 EXAMINATION: CT MAXILLOFACIAL WO CONTRAST, CT HEAD WO CONTRAST INDICATION INFORMATION: Fall, hit left outer orbital bone on concrete COMPARISON: Noncontrast head CT 01/25/2023 TECHNIQUE: Separate noncontrast CT examinations of the head and face were performed.Coronal and sagittal images were created for each examination at thetechnologist workstation. This CT examination was performed using dose optimization techniques asappropriate, variously including the following: *Automated exposure control *Adjustment of mA and/or kV according to patient size (this includestechniques or standardized protocols for targeted exams where dose ismatched to indication/reason for exam; i.e. extremities or head) *Use of iterative reconstruction technique DLP: 805 mGy-cm FINDINGS: Head: No acute osseous or soft tissue abnormality. The mastoid air cells andvisualized portions of the paranasal sinuses are well aerated. There is no evidence of acute intracranial hemorrhage or territorialinfarction. No abnormal mass effect or midline shift is seen. Cash towhite matter differentiation is well preserved. No extra-axial fluidcollections are identified. No hydrocephalus. No significant volume loss. There is no abnormalattenuation within the brain parenchyma. Mild calcific intracranialatherosclerosis. Facial Bones: Minimal left periorbital soft tissue swelling. There is no evidence of anacute facial bone fracture. The paranasal sinuses are well aerated.Partially edentulous. No significant dental disease is visualized. Theorbits are unremarkable in appearance. IMPRESSION: Minimal left periorbital soft tissue swelling without acute traumaticabnormality of the brain or facial bones. Report reviewed and signed by : Dr. Salvatore Brice on 08/12/2024 1:19 PM.Workstation Name - [id number] -------- FINAL REPORT -------- Dictated By: Salvatore Brice Dictated Date: 08/12/2024 13:12 ET Assigned Physician: Salvatore Brice Reviewed and Electronically Signed By: Salvatore Brice Signed Date: 08/12/2024 13:19 ET Workstation ID: [id number] Transcribed By: Self Edit Transcribed Date: 08/12/2024 13:12 ET Tristan Guerrero DO IMG CT PROCEDURES Final Resul t from Last 3 Months Insurance MEDICARE [facility] Care Teams Lap Regulator Relationship Specialty Start Date End Date Gold Callaway MD [address] [place] [address] PCP - General Pulmonary Disease 02/12/21
--- OUTSIDE RECORDS SUMMARY | 2024-10-25 15:48 | XMS_ITS | Clinical Summary ---
Author Organization [facility] Address [address] [place] [address] Care Team Providers Care Residential Team Leader Name Role Phone Gold Callaway MD Primary Care Provider [phone] Allergies No known active allergies Medications Medication Sig Dispensed Refills Start Date End Date Status Ferrous Sulfate Dried ER 143 (45 FE) MG TBCR Take 143 mg by mouth daily. 0 Active Multiple Vitamin (MULTI-VITAMIN PO) Take by mouth. 0 Ac tive losartan (COZAAR) tablet 50 mg Take 0.5 tablets (25 mg total) by mouth daily. 0 01/06/2021 Active atorvastatin (LIPITOR) tablet 20 mg Take 1 tablet (20 mg total) by mouth daily. 0 01/31/2021 Active propranolol (INDERAL) 20 MG tablet Take 1 tablet (20 mg total) by mouth 2 (two) times a day. 90 tablet 0 02/13/2021 Active meclizine (ANTIVERT) 25 MG tablet Take 1 tablet (25 mg total) by mouth every 6 (six) hours as needed for dizziness. 20 tablet 0 02/13/2021 Active triamterene-hydrochlo rothiazide (MAXZIDE-25) 37.5-25 MG per tablet Take 1 tablet by mouth daily. 60 tablet 0 02/01/2023 Active Accu-Chek Softclix Lancets lancetsIndications:Di abetes mellitus without complication (HCC) USE TO TEST 2 TIMES A DAY 200 each 12 11/15/2023 Active SITagliptin (JANUVIA) 50 MG tablet Take 1 tablet (50 mg total) by mouth daily. 30 tablet 11 01/18/2024 01/17/2025 Active glucose blood (Accu-Chek Carlene Plus) test stripIndications:Diab etes mellitus without complication (HCC) TEST TWICE DAILY 200 strip 2 03/22/2024 Active Jardiance 10 MG tablet TAKE 1 TABLET(10 MG) BY MOUTH DAILY 90 tablet 2 05/01/2024 Active glipiZIDE (GLUCOTROL XL) ER 24 hr tablet 5 mg Take 1 tablet (5 mg total) by mouth daily. 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 02/26/2015 Social History Tobacco Use Types Packs/Day Years Used Date Smoking Tobacco: Never Smokeless Tobacco: Never Tobacco Cessation:Counseling Given: Not Answered Alcohol Use Standard Drinks/Week Comments Never 0 (1 standard drink = 0.6 oz pur e alcohol) Sex and Gender Information Value Date Recorded Sex Assigned at Female 12/14/2020 8:06 PM EDT Gender Identity Female 12/14/2020 8:06 PM EDT Sexual Orientation Straight 01/25/2023 6: 58 PM EDT Job Start Date Occupation Industry Not on file Not on file Not on file Last Filed Vital Signs Vital Sign Reading Time Taken Comments Blood Pressure 132/72 05/23/2024 10:58 AM EST Pulse 54 05/23/2024 10:58 AM EST Temperature 36.4 ??C (97.5 ??F) 01/26/2023 8:06 AM ED T Respiratory Rate 18 01/26/2023 8:06 AM EDT Oxygen Saturation 100% 05/23/2024 10:58 AM EST Inhaled Oxygen Concentration - - Weight 78 kg (172 lb) 05/23/2024 10:58 AM EST Height 177.8 cm (5' 10 ) 05/23/2024 10:58 AM EST Body Mass Index 24.68 05/23/2024 10:58 AM EST Plan of Treatment Health Maintenance Due Date Last Done Comments Depression Screening 1951 Diabetes: Eye Exam (No Retinopathy) 1957 Diabetes: Foot Exam 1957 Preventative Health Evaluation 1957 DTap / Tdap / Td (1 - Tdap) 1958 Shingrix-Zoster Vaccine (1 of 2) 1989 Fall Risk Assessment 2004 Osteoporosis Screening (DEXA Scan) 2004 RSV Adult > 60+ Yrs or (1 - 1-dose 75+ series) 2014 Pneumococcal Vaccine (2 of 2 - PPSV23 or PCV20) 05/07/2020 03/12/2020 Diabetes: Microalbumin Test 09/05/2022 03/0 10/2021, 04/29/2021, 08/13/2020, Additional history exists COVID-19 Vaccine ( season) 2024 04/17/2022, 11/19/2021, 04/30/2021, Additional history exists Influenza Vaccine (#1) 2024 , 04/02/2021, 03/12/2020, Additional history exists Hemoglobin A1C Due 11/20/2024 05/23/2024, 0 01/18/2024, 07/20/2023, Additional history exists Hepatitis B Vaccines Aged Out No long er eligible based on patient's age to complete this topic RSV Ped < 20 months Aged Out No longe r eligible based on patient's age to complete this topic Advance Directives For more information, please contact: [phone] Documents on File Type Date Recorded Patient Patient Coordinator Front Desk Expl anation Advance Directive and Living Will 02/13/2020 9:44 AM Latest Code Status on File Code Status Date Activated Date Inactivated Comments Full Code 01/25/2023 5:03 PM 01/26/2023 8:09 PM This code status was ascertained in the following way: discussion with patient . Care Teams Residential Team Leader Relationship Specialty Start Date End Date Gold Callaway MD [address] [place] [address] PCP - General Pulmonary Disease 02/12/21
--- OUTSIDE RECORDS SUMMARY | 2024-10-25 15:48 | XMS_ITS ---
Author Name [facility] Organization Unknown Results Test Name/Text Value Interpretation Date Range Source Prot Ur Strip-mCnc Negative Normal [id number] - [facility] Clarity Ur Clear Normal [id number] - [facility] Nitrite Ur Ql Negative Normal [id number] - [facility] Leukocyte esterase Ur Ql Strip Negative Normal [id number] - [facility] Ketones Ur-mCnc Negative Normal - [facility] pH Ur 5.5pH Normal [id number] 5 - 8 [facility] Sp Gr Ur 1.01 Normal [id number] 1.005 - 1.03 [facility] Hgb Ur Ql Negative Normal [id number] - [facility] Glucose Ur Ql >=1000 Abnormal [id number] - [facility] Color Ur Yellow Normal [id number] - [facility] Troponin I SerPl HS-mCnc 6ng/L Normal [id number] 0 - 14 [facility] Bilirub SerPl-mCnc 0.8mg/dL Normal [id number] 0.3 - 1 [facility] Calcium SerPl-mCnc 10mg/dL Normal [id number] 8.4 - 10 .2 [facility] Sodium SerPl-sCnc 135mmol/L Normal [id number] 135 - 145 [facility] Potassium SerPl-sCnc 3.8mmol/L Normal [id number] 3.5 - 5.1 [facility] Prot SerPl-mCnc 7.6g/dL Normal [id number] 6.4 - 8.5 [facility] Albumin SerPl-mCnc 4.2g/dL Normal 3.5 - 5 [facility] Anion Gap SerPl-sCnc 7 Normal [id number] 5 - 14 [facility] AST SerPl-cCnc 26unit/L Normal [id number] 5 - 40 [facility] Creat SerPl-mCnc 1.48mg/dL Above high normal [id number] 0. 5 - 1 [facility] Chloride SerPl-sCnc 99mmol/L Normal [id number] 98 - 10 7 [facility] eGFRcr SerPlBld CKD-EPI 2020 35mL/min/1.73m2 Below low normal [id number] - [facility] Glucose SerPl-mCnc 279mg/dL Above high normal [id number] 70 - 199 [facility] BUN/Creat SerPl 23 Above high normal [id number] 12 - 20 [facility] BUN SerPl-mCnc 34mg/dL Above high normal [id number] 7 - 17 [facility] ALT SerPl-cCnc 16unit/L Normal [id number] 7 - 52 [facility] ALP SerPl-cCnc 82unit/L Normal 34 - 104 [facility] CO2 SerPl-sCnc 29mmol/L Normal 24 - 32 [facility] Monocytes/leuk NFr Bld Auto 6.8% Normal [id number] 2 - 12 [facility] RBC # Bld Auto 3.87M/mcL Below low normal [id number] 4.2 - 5.4 [facility] WBC # Bld Auto 5.9K/mcL Normal [id number] 4 - 10.5 [facility] Eosinophil/leuk NFr Bld Auto 4.3% Normal [id number] 0 - 6 [facility] RDW RBC Auto-Rto 12.7% Normal [id number] 12.1 - 16. 2 [facility] Eosinophil # Bld Auto 0.25K/mcL Normal [id number] 0 - 0.5 [facility] MCV RBC Auto 89.9FL Normal [id number] 78 - 100 [facility] Neutrophils/leuk NFr Bld Auto 62% Normal [id number] 44 - 74 [facility] MCH RBC Qn Auto 29.2pcg Normal [id number] 25 - 33 [facility] Hct VFr Bld Auto 34.8% Below low normal [id number] 37 - 47 [facility] Basophils # Bld Auto 0.03K/mcL Normal [id number] 0 - 0.2 [facility] Monocytes # Bld Auto 0.4K/mcL Normal [id number] 0 - 0.8 [facility] Lymphocytes/leuk NFr Bld Auto 26.3% Normal [id number] 20 - 48 [facility] PMV Bld Auto 11.5FL Above high normal [id number] 7.4 - 11.4 [facility] Lymphocytes # Bld Auto 1.54K/mcL Normal [id number] 1 - 3.2 [facility] Hgb Bld-mCnc 11.3g/dL Below low normal [id number] 12.5 - 16 [facility] MCHC RBC Auto-mCnc 32.5g/dL Normal [id number] 32 - 36 [facility] Platelet # Bld Auto 195K/mcL Normal [id number] 150 - 4 50 [facility] Neutrophils # Bld Auto 3.63K/mcL Normal [id number] 1.8 - 7.8 [facility] Basophils/leuk NFr Bld Auto 0.3% Normal [id number] 0 - 2 [facility] SARS-CoV-2 RNA Resp Ql SUNNY+probe Negative Normal [id number] [facility] FLUBV RNA Nph Ql SUNNY+probe Negative Normal [id number] [facility] FLUAV RNA Nph Ql SUNNY+probe Negative Normal [id number] [facility] RSV RNA Resp Ql SUNNY+probe Negative Normal [id number] [facility] Glucose Bld-mCnc 255mg/dL Above high normal [id number] 70 - 199 [facility] Prot Ur Ql Strip.auto NEGATIVE Normal [id number] - [facility] Nitrite Ur Ql Strip.auto NEGATIVE Normal [id number] - [facility] Color Ur Auto YELLOW Normal [id number] [facility] WBC number/area UrnS Auto 1/HPF Normal [id number] 0 - 5 [facility] Glucose Ur Ql Strip.auto >=500 Abnormal [id number] - [facility] Leukocyte esterase Ur Ql Strip.auto NEGATIVE Normal [id number] - [facility] Ketones Ur Ql Strip.auto NEGATIVE Normal [id number] - [facility] RBC number/area UrnS Auto <1 Normal [id number] 0 - 3 [facility] pH Ur Strip.auto 5 Normal [id number] 4.5 - 8 [facility] Clarity Ur Refract.auto CLEAR Normal [id number] [facility] Sp Gr Ur Strip.auto 1.021 Normal [id number] 1.0 05 - 1.03 [facility] Hgb Ur Ql Strip.auto NEGATIVE Normal [id number] - [facility] Squamous number/area UrnS Auto 14/LFP Above high normal [id number] 0 - 5 [facility] SPECIMEN SOURCE XXX URINE CLEAN CATCH Normal [id number] [facility] CALCIUM SERPL MCNC 9.6mg/dL Normal [id number] 8.4 - 10 .2 [facility] GLUCOSE P FAST SERPL MCNC 134mg/dL Above high normal [id number] 70 - 99 [facility] ANION GAP SERPL SCNC 10mmol/L Normal [id number] 5 - 14 [facility] CHLORIDE SERPL SCNC 103mmol/L Normal [id number] 98 - 10 7 [facility] BUN SERPL MCNC 33mg/dL Above high normal [id number] 7 - 17 [facility] HCO3 SER SCNC 30mmol/L Normal [id number] 24 - 32 [facility] POTASSIUM SERPL SCNC 4mmol/L Normal [id number] 3.5 - 5.1 [facility] Glomerular filtration rate/1.73 sq M. predicted 32 Below low normal [id number] 60 - [facility] SODIUM SERPL SCNC 143mmol/L Normal [id number] 135 - 145 [facility] CREAT SERPL MCNC 1.6mg/dL Above high normal [id number] 0. 5 - 1 [facility] LYMPHOCYTES NO. BLD AUTO 1.5K/uL Normal [id number] 1 - 3.2 [facility] NEUTROPHILS NFR BLD AUTO 52.5% Normal [id number] 44 - 74 [facility] RDW RBC AUTO RTO 13.1% Normal [id number] 12.1 - 16. 2 [facility] HGB BLD MCNC 11.4g/dL Below low normal [id number] 12.5 - 16 [facility] BASOPHILS NFR BLD AUTO 0.7% Normal [id number] 0 - 2 [facility] PLATELET NO. BLD AUTO 175K/uL Normal [id number] 150 - 450 [facility] PMV BLD AUTO 10.4fL Normal [id number] 7.4 - 11.4 [facility] MCV RBC AUTO 89.1fL Normal [id number] 78 - 100 [facility] NEUTROPHILS NO. BLD AUTO 2.4K/uL Normal [id number] 1.8 - 7.8 [facility] WBC NO. BLD AUTO 4.5K/uL Normal [id number] 4 - 10.5 [facility] MONOCYTES NFR BLD AUTO 8.2% Normal [id number] 2 - 12 [facility] EOSINOPHIL NO. BLD AUTO 0.2K/uL Normal [id number] 0 - 0.5 [facility] LYMPHOCYTES NFR BLD AUTO 33.7% Normal [id number] 20 - 48 [facility] MONOCYTES NO. BLD AUTO 0.4K/uL Normal [id number] 0 - 0.8 [facility] MCH RBC QN AUTO 30.3pg Normal [id number] 25 - 33 [facility] HCT VFR BLD AUTO 33.4% Below low normal [id number] 37 - 47 [facility] MCHC RBC AUTO MCNC 34g/dL Normal [id number] 32 - 36 [facility] BASOPHILS IN BLOOD BY AUTOMATED COUNT 0K/uL Normal [id number] 0 - 0.2 [facility] EOSINOPHIL NFR BLD AUTO 4.9% Normal [id number] 0 - 6 [facility] RBC NO. BLD AUTO 3.75M/uL Below low normal [id number] 4.2 - 5.4 [facility] DIFFERENTIAL TYPE AUTOMATED Normal [id number] [facility] WBC NO. BLD AUTO 4.1K/uL Normal [id number] 4 - 10.5 [facility] HGB BLD MCNC 11.2g/dL Below low normal 12.5 - 16 [facility] MCH RBC QN AUTO 29.7pg Normal 25 - 33 [facility] MCV RBC AUTO 88.8fL Normal 78 - 100 [facility] RDW RBC AUTO RTO 13.2% Normal 12.1 - 16. 2 [facility] MCHC RBC AUTO MCNC 33.4g/dL Normal 32 - 36 [facility] HCT VFR BLD AUTO 33.5% Below low normal 37 - 47 [facility] PLATELET NO. BLD AUTO 187K/uL Normal 150 - 450 [facility] PMV BLD AUTO 10.6fL Normal 7.4 - 11.4 [facility] RBC NO. BLD AUTO 3.78M/uL Below low normal 4.2 - 5.4 [facility] BUN SERPL MCNC 35mg/dL Above high normal [id number] 7 - 17 [facility] CHLORIDE SERPL SCNC 102mmol/L Normal 98 - 10 7 [facility] SODIUM SERPL SCNC 141mmol/L Normal [id number] 135 - 145 [facility] ANION GAP SERPL SCNC 9mmol/L Normal [id number] 5 - 14 [facility] POTASSIUM SERPL SCNC 3.7mmol/L Normal [id number] 3.5 - 5.1 [facility] GLUCOSE P FAST SERPL MCNC 102mg/dL Above high normal [id number] 70 - 99 [facility] CALCIUM SERPL MCNC 9.7mg/dL Normal 8.4 - 10 .2 [facility] Glomerular filtration rate/1.73 sq M. predicted 34 Below low normal [id number] 60 - [facility] CREAT SERPL MCNC 1.5mg/dL Above high normal [id number] 0. 5 - 1 [facility] HCO3 SER SCNC 30mmol/L Normal 24 - 32 [facility] CREAT UR MCNC 123.7mg/dL Normal CT [facility] Prot/Creat Ur 0.08 Normal [facility] PROT UR MCNC 9.4mg/dL Normal - 14 [facility] History of Medication Use Medication Directions Dispensed Refills Start Date End Date [facility] sodium chloride 0.9 % bolus 1,000 mL 1,000 mL, intravenous, at 1,000 mL/hr, Administer over 1 Hours, Once, On Wed09/13/24 at 1733, For 1 dose 09/13/2024 09/13/2024 completed glipiZIDE (GLUCOTROL XL) ER 24 hr tablet 10 mg TAKE 1 TABLET(10 MG) BY MOUTH DAILY 04/17/2024 active SITagliptin (JANUVIA) 50 MG tablet Take 1 tablet (50 mg total) by mouth daily. 01/18/2024 active triamterene-hydroch lorothiazide (MAXZIDE-25) 37.5-25 MG per tablet Take 1 tablet by mouth daily. 02/01/2023 active glipiZIDE (GLUCOTROL XL) 10 mg 24 hr tablet Take 1 tablet (10 mg total) by mouth daily. 04/07/2022 active Gabapentin 02/16/2022 active glucose blood test strip Testing 2x a day e11.9 10/06/2021 active meclizine (ANTIVERT) 25 mg tablet Take 1 tablet (25 mg total) by mouth every 6 (six) hours as needed for dizziness. 02/13/2021 active meclizine (ANTIVERT) 25 MG tablet Take 1 tablet (25 mg total) by mouth every 6 (six) hours as needed for dizziness. 02/13/2021 active propranolol (INDERAL) 20 MG tablet Take 1 tablet (20 mg total) by mouth 2 (two) times a day. 02/13/2021 active propranoloL (INDERAL) 20 mg tablet Take 1 tablet (20 mg total) by mouth 2 (two) times a day. 02/13/2021 active atorvastatin (LIPITOR) 20 mg tablet Take 20 mg by mouth daily. 01/31/2021 active atorvastatin (LIPITOR) tablet 20 mg Take 1 tablet (20 mg total) by mouth daily. 01/31/2021 active losartan (COZAAR) 50 mg tablet Take 25 mg by mouth daily. 01/06/2021 active triamterene-hydroCH LOROthiazide (MAXZIDE-25) 37.5-25 mg per tablet Take 1 tablet by mouth daily. 11/17/2020 active ferrous sulfate 143 mg (45 mg iron) tablet extended release Take 143 mg by mouth daily. active Ferrous Sulfate Dried ER 143 (45 FE) MG TBCR Take 143 mg by mouth daily. 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 2015-02-26 ProblemAct [facility] Diabetes mellitus without complication active 2016-06-23 ProblemAct [facility] Dehydration active EncounterDiagnosisAct [facility] Foot deformity, bilateral active 2016-10-27 ProblemAct [facility] Lightheadedness active EncounterDiagnosisAct [facility] Chronic kidney disease, unspecified active EncounterDiagnosisAct [facility] Weakness active 2023-01-25 ProblemAct [facility] 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 active EncounterDiagnosisAct [facility] KARISHMA (acute kidney injury) active 2023-01-25 ProblemAct [facility] Chronic kidney disease, stage 3 unspecified (HCC) active EncounterDiagnosisAct [facility] COVID-19 active 2023-01-25 ProblemAct [facility] BUNION active 2011-04-29 ProblemAct [facility] Hallux valgus, left foot active 2022-02-16 ProblemAct [facility] Hallux valgus, right foot active 2022-02-16 ProblemAct [facility] Heel pain active 2022-02-16 ProblemAct [facility] Type 2 diabetes mellitus with diabetic polyneuropathy active 2023-10-25 EncounterDiagnosisAct [facility] PAIN IN LIMB active 2012-11-18 ProblemAct [facility] ONYCHOMYCOSIS - DERMATOPHYTOSIS NAIL active 2012-11-18 ProblemAct [facility] HAMMER TOE active 2011-04-29 ProblemAct [facility] Encounters Encounter Type Encounter Reason Primary Diagnosis Location Date Emergency weakness, Dizziness, Cold hands and Feet Dizziness and giddiness [facility] 09/13/2024 Ambulatory [facility] 08/14/2024 Ambulatory [facility] 08/14/2024 Emergency fall, right face injury Contusion of other part of head, initial encounter [facility] 08/12/2024 Ambulatory Chronic kidney disease, unspecified Chronic kidney disease, unspecified [facility] 04/20/2024 Ambulatory Chronic kidney disease, stage 3 unspecified Chronic kidney disease, stage 3 unspecified [facility] 06/15/2023 Inpatient Weakness [facility] 01/26/20 Ambulatory Radiculopathy, s ite unspecified [facility] 07/02/2021 Ambulatory Radiculopathy, s ite unspecified [facility] 06/30/2021 Ambulatory Radiculopathy, s ite unspecified [facility] 06/26/2021 Ambulatory Radiculopathy, s ite unspecified [facility] 06/24/2021 Ambulatory Radiculopathy, s ite unspecified [facility] 06/19/2021 Ambulatory Radiculopathy, s ite unspecified [facility] 06/16/2021 Ambulatory [facility] 06/11/2021 Ambulatory [facility] 06/09/2021 Ambulatory Radiculopathy, s ite unspecified [facility] 06/04/2021 Ambulatory [facility] 06/02/2021 Care Team Organization Name Specialty Phone Email Start Date End Da te [facility] 2024 [facility] 09/13/2024 [facility] 08/12/2024 [facility]/2501/25/2023 [facility] 12/05/2022 [facility] Primary Care 07/02/2021 4 [facility] Home [facility] Primary Care 06/02/2021 4 Anyone Home [facility] Primary Care 06/02/2021 07/02/2021 [facility] Primary Care 06/02/2021 06/02/2021 [facility]
--- OUTSIDE RECORDS SUMMARY | 2024-10-25 15:48 | XMS_ITS | Clinical Summary ---
Author Organization [facility] Address [address] [place] [address] Care Team Providers Care Cigar Packing Examiner Name Role Phone Gold Callaway MD Primary Care Provider Allergies No known active allergies Medications No known medications Active Problems No known active problems Social History Tobacco Use Types Packs/Day Years Used Date Smoking Tobacco: Never Assessed Comments Unknown Sex and Gender Information Value Date Recorded Sex Assigned at Not on file Legal Sex Female 6:52 PM EST Gender Identity Not on file Sexual Orientation Not on file Plan of Treatment Health Maintenance Due Date Last Done Comments DTaP/Tdap/Td Vaccines (1 - Tdap) 1959 Pneumococcal Vaccines 50+ (1 of 1 - PCV) 1989 Zoster (Shingles) Vaccine (1 of 2) 1989 DXA Bone Density (Females,Ages 65 and older) 2004 RSV Vaccine 60 years and older and Patients (1 - 1-dose 75+ series) 2014 Influenza Vaccine 02/03/2024 COVID-19 Vaccine (2023- season) 2024 04/30/2021, 08/19/2020, 07/29/2020 Hemoglobin A1C Discontinued 08/10/2019 Hepatitis B Vaccines Aged Out No long er eligible based on patient's age to complete this topic Insurance MEDICARE PART A & B [facility] Care Teams Cigar Packing Examiner Relationship Specialty Start Date End Date Gold Callaway MD [address] [place] [id number] PCP - General Internal Medicine 05/27/21
--- OUTSIDE RECORDS SUMMARY | 2024-10-25 15:48 | XMS_ITS | Clinical Summary ---
Author Organization [facility] Address [address] [place] [address] Phone Care Team Providers Care Painter Sign Maintenance Name Role Phone Gold Callaway MD Primary Care Provider [phone] Allergies No known active allergies Medications Ferrous Sulfate (Iron) 325 (65 Fe) MG tablet Take 1 tablet by mouth 1 (one) time each day Active MULTIPLE VITAMIN PO Take by mouth Active atorvastatin (LIPITOR) 20 MG tablet Take 1 tablet by mouth 1 (one) time each day Active propranolol (INDERAL) 20 MG tablet 1 tablet 3 (three) times a day Active SITagliptin (JANUVIA) 25 MG tablet Take 1 tablet by mouth 1 (one) time each day Active Jardiance 10 MG tablet Take 1 tablet by mouth 1 (one) time each day 11/05/2021 Active glipiZIDE (GLUCOTROL XL) 10 MG 24 hr tablet 03/23/2023 Active triamterene-hydr oCHLOROthiazide (MAXZIDE-25) 37.5-25 MG per tablet Take 1 tablet by mouth 1 (one) time each day 05/16/2023 Active losartan (COZAAR) 50 MG tablet TAKE 1 TABLET BY MOUTH EVERY DAY 90 tablet 3 08/29/2024 Active Active Problems Problem Noted Date Diagnosed Date Acute nontraumatic kidney injury 01/25/2023 COVID-19 01/25/2023 06/22/2023 Weakness 01/25/2023 06/22/2023 Anemia of chronic disease 11/27/2020 Chronic kidney disease stage 3 11/27/2020 Deformity of foot 10/27/2016 Diabetes mellitus without complication 6 Mixed hyperlipidemia 02/26/2015 Encounters Date Type Department Care Team Description 08/26/2024 Refill [facility] [address] [place] [address] Keon Sosa MD from Last 3 Months Family History Medical History Relation Comments Hypertension Father Diabetes Mother Hypertension Mother Diabetes Sibling 1 brother Kidney disease Sibling 2 brother on dialy sis Relation Status Comments Father Mother Sibling 1 Sibling 2 Social History Tobacco Use Types Packs/Day Years Used Date Smoking Tobacco: Never Smokeless Tobacco: Never Tobacco Cessation:Counseling Given: No Alcohol Use Standard Drinks/Week Comments No 0 (1 standard drink = 0.6 oz pur e alcohol) Comments Unknown Sex and Gender Information Value Date Recorded Sex Assigned at Not on file Legal Sex Female 5:01 PM EST Gender Identity Not on file Sexual Orientation Not on file Last Filed Vital Signs Vital Sign Reading Time Taken Comments Blood Pressure 114/60 06/22/2023 2:11 PM EST Pulse 66 06/22/2023 2:11 PM EST Temperature - - Respiratory Rate - - Oxygen Saturation 99% 06/22/2023 2:11 PM EST Inhaled Oxygen Concentration - - Weight 77.1 kg (170 lb) 06/22/2023 2:11 PM EST Height 177.8 cm (5' 10 ) 07/25/2019 12:00 PM EST Body Mass Index 24.39 07/25/2019 12:00 PM EST Plan of Treatment Health Maintenance Due Date Last Done Comments Pneumococcal Vaccine: 50+ Years (1 of 2 - PCV) 1959 Diabetes: Ophthalmology Exam 11/20/2020 Diabetes: Pedal Pulse Checked 11/20/2020 Diabetes: Sensory Foot Exam 11/20/2020 Diabetes: Visual Foot Exam 11/20/2020 Diabetes: Hemoglobin A1C 08/23/2024 024, 03/23/2023, 09/22/2022, Additional history exists Influenza Vaccine (Season Ended) 2025 Hepatitis B Vaccine Aged Out No longe r eligible based on patient's age to complete this topic [place] [address] [place] [address] [place] [address] [place] [address] Medicare Care Teams Painter Sign Maintenance Relationship Specialty Start Date End Date Gold Callaway MD [address] [facility] [place], [place] [facility] - General 07/15/20
== END 2024-10-25 13:44 | disposition home or self-care (01) ==
LOC: HO.HKAE 13:24
PROVIDERS: PCP Internal Medicine Pulmonary Disease; Visit Provider Internal Medicine Hypertension Specialist
DX: N18.9 Chronic kidney disease, unspecified (principal)
CPT/HCPCS: 99214

== ENCOUNTER → 2024-10-25 13:23 | Outpatient (BNVA) | payer MEDICARE, SELFPAY | PROVIDERS: PCP Internal Medicine Pulmonary Disease; Visit Provider Internal Medicine Hypertension Specialist | DX: E11.22 Type 2 diabetes mellitus with diabetic chronic kidney disease (principal); I12.9 Hypertensive chronic kidney disease with stage 1 through stage 4 chronic kidney disease, or unspecified chronic kidney disease; N18.30 Chronic kidney disease, stage 3 unspecified | CPT/HCPCS: 99212 ==

== ENCOUNTER 2025-04-25 13:11 | Outpatient (AMB) | payer MEDICARE, SELFPAY ==
[2025-04-25 13:20] VITALS: BP 126/62; PULSE 66; O2SAT 97; BMI 24.1
--- NOTE | 2025-04-25 13:20 | HO.NEPHOV_ITS ---
Vital Signs 04/25/25 13:20 Height 5 ft 10 in Weight 168 lb BMI 24.1 BP 126/62 Blood Pressure Location Lt brachial Position Sitting Pulse 66 Pulse Source Pulse Oximeter Pulse Oximetry (%) 97 Oxygen Delivery Method Room Air Intake Visit Reasons: 6mon follow-up w/labs-Conf 04/18/25 Operation Shift Supervisor Required: No Accompanied by: Self / Same As Patient Allergies No Known Allergies Allergy (Verified 04/25/25 13:22) Medication List - Last Reconciled 04/25/25 by Inocencio Avila MD atorvastatin 20 mg PO DAILY empagliflozin (Jardiance) 10 mg PO DAILY ferrous sulfate 325 mg PO DAILY glipizide ER 5 mg PO DAILY losartan 25 mg PO DAILY propranolol 20 mg PO BID sitagliptin phosphate (Januvia) 50 mg PO DAILY triamterene-hydrochlorothiazid 37.5-25 mg 1 tab PO DAILY HPI Comments Details: Dominga is a pleasant 83-year-old woman with a history of CKD 3 in a setting of longstanding diabetes mellitus hypertension. From renal standpoint she has been doing well. She has been diagnosed with an neuropathy. Blood sugar has been well controlled. 04/26/24 ;Jardiance has been added around January 2024;Recent A1C was 8.2% 10/25/24 Here for follow up. Doing Ok. Recently has a fall and went to ER 04/25/25: - The patient is an 85-year-old female presenting with hypertension and chronic kidney disease. - Hypertension: Blood pressure is well-controlled with current medication. - Chronic Kidney Disease: Creatinine stable at 1.37 mg/dL. [facility] Family History Brother Diabetes Mother Diabetes Hypertension Father Hypertension Physical Exam Vital Signs: Last Vital Signs Pulse 66 04/25/25 13:20 BP 126/62 04/25/25 13:20 Pulse Ox 97 04/25/25 13:20 Oxygen Delivery Method Room Air 04/25/25 13:20 BMI result Body Mass Index 24.1 No orthostatic BP changes Const General: comfortable; No acute distress Orientation/consciousness: patient oriented x3 Eyes General: appearance normal, both eyes and all related structures Visual Hernandez: normal visual hernandez by confrontation Neck Neck: Yes supple and Yes no JVD Resp Effort & Inspection: normal respiratory effort and respiratory effort not decreased Cardio Palpation: no palpable S3 and no palpable S4 Heart sounds: no rubs GI Inspection: Yes normal to inspection Palpation (GI): Soft to palpation Percussion: Yes normal to percussion Auscultation: normal bowel sounds General: Yes no CVA tenderness Back/Spine/Pelvis Back: no CVA tenderness Skin General skin exam: no petechiae and no purpura Neuro General: patient oriented x3 and no focal motor deficits Extrem General: No clubbing and No edema Results Reviewed Results Reviewed: Cr 1.3 Oct : 2024 BUN/ CR : 29/1.37 HgB 11.7 Assessment & Plan Assessment & Plan (1) CKD (chronic kidney disease): Code(s): N18.9 - Chronic kidney disease, unspecified Category: Medical Plan Dominga has stage 3 chronic kidney disease in the setting of longstanding diabetes mellitus and hypertension. Overall renal function has been stable to baseline. Recent creatinine is around 1.3 to 1.4 mg/dL. Continue with low dose of Losartan for renal protection. Stay on Jardiance History of hypertension Blood pressure is well controlled. Continue to avoid hypotension. 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 Seen by Hematology Mild anemia no absolute indication for Epogen yet. Recent HgB is 11.7gm/dL No changes were made Medications: New losartan 25 mg (1/2 x 50 mg) PO DAILY 90 tabs 2RF Coding Level of Care Code Est Pt Level 4 (97568) Diagnoses CKD (chronic kidney disease) N18.9
--- OUTSIDE RECORDS SUMMARY | 2025-04-25 18:32 | XMS_ITS | Clinical Summary ---
Author Organization [facility] Address [address] [place] [address] Care Team Providers Care Director Validation Name Role Phone Gold Callaway MD Primary Care Provider [phone] Allergies No known active allergies Medications No [...] Health Maintenance Due Date Last Done Comments Advance Care Planning 1940 DTaP/Tdap/Td Vaccines (1 - Tdap) 1958 Pneumococcal Vaccines 50+ (1 of 1 - PCV) 1989 Zoster (Shingles) Vaccine (1 of 2) 1989 DXA Bone Density (Females,Ages 65 and older) 2004 RSV Vaccine 50 years and older and Patients (1 - 1-dose 75+ series) 2014 Influenza Vaccine 02/02/2025 COVID-19 Vaccine (2024- season) 2025 04/30/2021, 08/19/2020, 07/29/2020 Hemoglobin A1C Discontinued 08/10/2019 Hepatitis B Vaccines Aged Out No long er eligible based on patient's age to complete this topic Insurance MEDICARE PART A & B [facility] Care Teams Director Validation Relationship Specialty Start Date End Date Gold Callaway MD [address] [place] [id number] PCP - General Internal Medicine 05/27/21
--- OUTSIDE RECORDS SUMMARY | 2025-04-25 18:33 | XMS_ITS | Data Portability ---
Author Organization [facility] Address [address] [place] [address] Care Team Providers Care Technical Information Specialist Name Role Phone CHANDNI LOPEZ Primary Care Provider [phone] CHANDNI LOPZE Referring Provider SUSAN MORALES Outdoor Landscape Architect Assessment No assessment recorded. Plan of Treatment Reminders Order Date Submit Date Provider Last Modified By Organization Details Last Modified Time Details Appointments OFFICE VISIT 15 2025 10:15A M Not available Not available Not available Lab glucose, fingersti ck, blood 2024 025 [email or web address] [place], [address], [place], [address], 02/28/2025 14:46:35 hemoglobi n A1C, fingersti ck 2024 025 [email or web address] [place], [address], [place], [address], 02/28/2025 14:46:35 glucose, fingersti ck, blood 2024 025 [email or web address] [place], [address], [place], [address], 11/21/2024 14:06:49 hemoglobi n A1C, fingersti ck 2024 025 [email or web address] [place], [address], [place], [address], 11/21/2024 14:06:49 Referral None recorded. Procedures None recorded. Surgeries None recorded. Imaging None recorded. Medication Orders Jardiance 10 mg tablet 2024 025 MARCIE [id number], [address], [place], [place], [phone], 02/27/2025 13:11:37 glipizide ER 5 mg tablet, extended release 24 hr 2024 025 [id number], [address], [place], [place], [phone], 02/27/2025 13:11:20 Patient TargetsNo targets recorded. Patient Instructions Encounter Date Encounter Id Patient Instructions Last Modified By Organization Details Last Modified Time 11/21/2024 [id number] 1. Remember to test your blood sugars daily do it 1 day in the morning the next day try to do it in the evening before your dinner or before bedtime Not available 11/21/2024 14:05:39 02/27/2025 [id number] I want you to continue taking the Jardiance at 10 mg, glipizide 5 mg extended release and the Januvia 50 mg once daily. He is okay to have numbers as low as in the 80s but I will be concerned. Try getting numbers below 70. Not available 02/27/2025 13:07:37 Reason for Referral None Reported. Results Created Date Observation Date Name Description Value Unit Range Abnormal Flag Note LastModifiedBy Organization Detail LastModifiedTime 11/22/19 25 11/21/2024 hemog lobin A1C, goran rstic k HbA1c 8.0 Not Available [facility] [address] [place] [address], [place], [address], 11/21/2024 13:34:03 11/22/19 25 11/21/2024 gluco se, goran rstic k, blood Blood Glucose: mg/dl 86 Not Available [facility] [address] [place] [address], [place], [address], 11/21/2024 13:33:56 02/28/2002/27/2025 hemog lobin A1C, goran rstic k HbA1c 8.0 Not Available [facility] [address] [place] [address], [place], [address], 02/26/2025 11:41:48 02/28/2002/27/2025 gluco se, finge rstic k, blood Blood Glucose: mg/dl 208 Not Available [facility] [address] [place] [address], [place], [address], 02/26/2025 11:41:41 Result Notes None recorded. 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 christopher Not Available [facility] 4 21:54:01 Diabetes mellitus without complicat ion 370282572 Active 2015 Diabetes mellitus without complicat ion Not Available [facility] 4 21:54:01 Deformity of foot 818282071 Active 2016 Foot deformity , bilateral Not Available [facility] 4 21:54:00 COVID-19 912997277 Active 2022 COVID-19 Not Available [facility] 4 21:54:00 Asthenia 93752807 Active 2022 Weakness Not Available [facility] 21:54:01 Acute kidney injury 43918247 Active 2022 KARISHMA (acute kidney injury) Not Available [facility] 21:54:02 Uncontrol led type 2 diabetes mellitus 008777236 Active [address] - [facility] 13:33:47 Diabetic foot 665098242 Active 2024 Susan Morales MD [address] [place], [address] , [facility] 5 13:54:47 Hyperglyc emia due to type 2 diabetes mellitus 37959315241 9109 Active 2024 Skyler Jaclyn Shaan osei, [facility] 11:41:28 Problem Notes None recorded. Medical Equipment None Reported. Medications Name Sig Start Date Stop Date Status Note LastModified by Organization Details LastModified Time losartan 50 mg tablet TAKE 1 TABLET BY MOUTH EVERY DAY active Not Available Not Available No t Available atorvastatin 20 mg tablet TAKE 1 TABLET BY MOUTH EVERY DAY active Not Available Not Available No t Available glipizide ER 10 mg tablet, extended release 24 hr TAKE 1 TABLET( 10 MG) BY MOUTH DAILY 02/27 completed Not Available Not Available Not Available glipizide ER 5 mg tablet, extended release 24 hr Take 1 tablet every day by oral route. 2024 active Not Available Not Available Not Avai lable Accu-Chek Softclix Lancets test twice daily 2024 active Not Available Not Available Not Avai lable meclizine 25 mg tablet Take 1 tablet (25 mg total) by mouth every 6 (six) hours as needed for dizzine ss. 02/27 completed Not Available Not Available Not Available triamterene 37.5 mg-hydrochlor othiazide 25 mg tablet TAKE 1 TABLET BY MOUTH EVERY DAY active Not Available Not Available No t Available propranolol 20 mg tablet TAKE 1 TABLET BY MOUTH THREE TIMES DAILY active Not Available Not Available No t Available glipizide 5 mg tablet Take 1 tablet every day by oral route. active Not Available Not Available No t Available Januvia 50 mg tablet take 1 tablet by mouth daily 2024 active Not Available Not Available Not Avai lable ferrous sulfate ER 143 mg (45 mg iron) tablet,extend ed release Take 143 mg by mouth daily. 02/27 completed Not Available Not Available Not Available Accu-Chek Carlene Plus test strips TEST TWICE DAILY active Not Available Not Available No t Available Jardiance 10 mg tablet TAKE 1 TABLET BY MOUTH DAILY active Not Available Not Available No t Available Vitals Date Recorded Body height Body mass index (BMI) Body weight Oxygen saturation Oxygen saturation in Arterial blood by Pulse oximetry Heart rate Systolic And Diastolic Provider Name and Address Organization Details Last Updated DateTime 5 177.8 cm 24.5 kg/m2 87623.3 g 98 % 98 % 50 /min 130/66 mm[Hg] DIPAK SWANSON [facility] 13:43:26 Date Recorded Body height Body mass index (BMI) Body weight Heart rate Oxygen saturation Oxygen saturation in Arterial blood by Pulse oximetry Systolic And Diastolic Provider Name and Address Organization Details Last Updated DateTime 5 177.8 cm 24.5 kg/m2 02213.3 g 59 /min 97 % 97 % 140/60 mm[Hg] Skyler Garduno [facility] 12:45:16 Social History None recorded. Functional Status None recorded. Mental Status None recorded. Family History Nothing Reported. Medical History No medical history recorded. Gynecological HistoryNo gynecological history recorded. Obstetrics History GPAL:G 0 P 0 0 0 0 Past Encounters Encounter ID Performer Location Encounter Start Date Encounter Closed Date Diagnosis/Indication Diagnosis SNOMED-CT Code Diagnosis ICD10 Code Diagnosis IMO Codes Diagnosis Note [id number] Susan Morales MD [facility] [address] [place] [address] [place] [address] 11/21/2024 13:05:35 11/21/2024 14:08:58 Uncontrolled type 2 diabetes mellitus 299181663 E11.65 42371621 She is taking glipizide extended release 10 mg, Jardiance for renal protection . She has CKD stage III. A1c level today was 8.0%. Her previous A1c level in May 2024 was 7.8%.Has been monitoring blood sugars only in the morning. Did not have her meter with her today.We talked extensivel y about how to avoid high blood sugars by changing eating habits avoiding carbohydra magda. She is also having a lot of emotional stress which could also have been affecting her day-to-day blood sugars.I asked her to start monitoring more frequently in the afternoons and to alternate 1 day in the afternoon 1 day in the evening when testing blood sugars. Diabetic foot 879661009 E11.8 540812 She has bilateral bunions. [id number] Susan Morales MD [facility] [address] [place] [address] [place] [address] 02/27/2025 12:36:47 02/27/2025 13:07:57 Hyperglycemia due to type 2 diabetes mellitus 8752020309 16616 E11.65 9371486487 She is taking glipizide extended release 10 mg, Jardiance for renal protection . She has CKD stage III. A1c level today was 8.0%.Has been monitoring blood sugars only in the morning. Did not have her meter with her today.We talked extensivel y about how to avoid high blood sugars by changing eating habits avoiding carbohydra magda. She is also having a lot of emotional stress which could also have been affecting her day-to-day blood sugars.I asked her to start monitoring more frequently in the afternoons and to alternate 1 day in the afternoon 1 day in the evening when testing blood sugars. Diabetic foot 892279030 E11.8 662439 She has bilateral bunions.Sh roger also has hammertoe on the right foot second toe. No open wounds. Health Concerns Section Related Observation LastModified by Organization Detai ls LastModified Time None Recorded Concern Status LastModified by Organization Details LastModified Time None Recorded Advance Directives Directive None Recorded Payers Insurance Date Sequence Insurance Name Policy Number Policy Almanza Covered Member ID Almanza Member ID Guarantor Name 02/24/2025 1 MEDICARE B-[place]: NGS Dominga Smalls [id number] Dominga Smalls 02/24/2025 2 [employer] (MEDICARE SUPPLEMENT) Dominga Smalls [id number] Dominga Smalls Notes Date Note Type Note Provider Name and Address Organization Details Recorded Time 5 text/html Patient is a 84 y.o. female who presents with type II diabetes. She has chronic kidney disease stage III. She is on glipizide extended release 1 tablet daily. She is on losartan and propranolol to control blood pressure along with triamterene hydrochlorothiazide 37.5/25.On glipizide extended release 10 mg, Januvia 50 mg, Jardiance 10 mg diet and exercise. She had to stop the Januvia because of cost.She was off the glipizide for a couple of months that led to very high blood sugars. Since then I called her and she is back on the glipizide 10 mg extended release.She takes atorvastatin 20 mg to control cholesterol. She is on a ARB. She had her second shot of Covid vaccine recently.She lost her brother who lives in [place] in 2019.She still feeling unbalanced. She has had a couple of falls earlier this year. She has some damage to her right meniscus. She is wearing a brace. Susan Morales MD [address] [place], [address], [facility] 11/21/2024 14:06:52 5 text/html Patient is a 84 y.o. female who presents with type II diabetes. She has chronic kidney disease stage III. She is on glipizide extended release 1 tablet daily. She is on losartan and propranolol to control blood pressure along with triamterene hydrochlorothiazide 37.5/25.On glipizide extended release 5 mg, Januvia 50 mg, Jardiance 10 mg diet and exercise. She had to stop the Januvia because of cost.She was off the glipizide for a couple of months that led to very high blood sugars. Since then I called her and she is back on the glipizide 10 mg extended release.She takes atorvastatin 20 mg to control cholesterol. She is on a ARB. She had her second shot of Covid vaccine recently.She lost her brother who lives in [place] in 2019.She still feeling unbalanced. She has had a couple of falls earlier this year. She has some damage to her right meniscus. She is wearing a brace. Susan Morales MD [address] [place], [address], [facility] 02/27/2025 13:12:20 OBGyn Episode No OBEpisode recorded.
--- OUTSIDE RECORDS SUMMARY | 2025-04-25 18:33 | XMS_ITS | Clinical Summary ---
Author Organization [facility] Address [address] [place] [address] Care Team Providers Care Insurance Case Manager Name Role Phone Gold Callaway MD Primary Care Provider [phone] Allergies No known active allergies Medications Medication [...] A DAY 200 each 12 11/15/2023 Active glucose blood (Accu-Chek Carlene Plus) test [...] 54 05/23/2024 10:58 AM EST Temperature 36.4 C (97.5 F) 01/26/2023 8:06 AM EDT Respiratory Rate 18 01/26/2023 8:06 AM EDT [...] 03/0 10/2021, 04/29/2021, 08/13/2020, Additional history exists Hemoglobin A1C Due 11/20/2024 05/23/2024, 0 01/18/2024, 07/20/2023, Additional history exists COVID-19 Vaccine ( season) 2025 04/17/2022, 11/19/2021, 04/30/2021, Additional history exists Influenza Vaccine (#1) 2025 2, 04/02/2021, 03/12/2020, Additional history exists Hepatitis B Vaccines Aged Out No long er eligible based on patient's age to complete this topic RSV Ped < 20 months Aged Out No longe r eligible based on patient's age to complete this topic Advance Directives For more information, please contact: [phone] Documents on File Type Date Recorded Patient Party Plan Salesperson Expl anation Advance Directive and Living Will 02/13/2020 9:44 AM Latest Code Status on File Code Status Date Activated Date Inactivated Comments Full Code 01/25/2023 5:03 PM 01/26/2023 8:09 PM This code status was ascertained in the following way: discussion with patient . Care Teams Insurance Case Manager Relationship Specialty Start Date End Date Gold Callaway MD [address] [place] [address] PCP - General Pulmonary Disease 02/12/21
--- OUTSIDE RECORDS SUMMARY | 2025-04-25 18:33 | XMS_ITS | Clinical Summary ---
Author Organization [facility] Address [address] [place] [address] Phone Care Team Providers Care Staffing Clerk Name Role Phone Gold Callaway MD Primary Care Provider Allergies No known active allergies Medications atorvastatin [...] fat and carbohydrate induced hyperlipem ia 02/26/2015 Medical History Medical History Date Comments Diabetes mellitus ([facility] V24, [facility] V28) Hypertension Renal disorder Renal disorder DX:Renal disorde r Hypertension DX:Hypertension Diabetes mellitus ([facility] V24, [facility] V28) DX:Diabetes mellitus ([facility]) Social History Tobacco Use Types Packs/Day Years [...] Sign Reading Time Taken Comments Blood Pressure 127/59 11/10/2024 8:28 AM EDT Pulse 55 11/10/2024 8:28 AM EDT Temperature 36.7 C (98.1 F) 11/10/2024 8:28 AM EDT Respiratory Rate 20 11/10/2024 8:28 AM EDT Oxygen Saturation 96% 11/10/2024 8:28 AM EDT Inhaled Oxygen Concentration - - Weight 78 kg (172 lb) 11/10/2024 8:28 AM EDT Height 177.8 cm (5' 10 ) 11/10/2024 8:28 AM EDT Body Mass Index 24.68 11/10/2024 8:28 AM EDT Plan of Treatment Upcoming Encounters Date Type Department Care Team (Late st Contact Info) Description 05/16/2025 10:00 AM EST Office Visit Internal Medicine - [place] [address] [place] [address] Shabana Restrepo MD [address] [place] [address] Health Maintenance Due Date Last Done Comments Diabetes: Annual Foot Exam 1950 Diabetes: Annual Retina Eye Exam 1950 DTaP,Tdap,and Td Vaccines (1 - Tdap) 1958 RSV Immunization Adult Patients (1 - 1-dose 75+ series) 2014 Pneumococcal Vaccine: 50+ Years (2 of 2 - PPSV23, PCV20, or PCV21) 05/07/2020 03/12/2020 Falls Risk Assessment 06/11/2022 Medicare Annual Wellness Visit 06/11/2022 Osteoporosis Screening (Bone Density Screening) 06/11/2022 Social Influencers of Health Screening 06/11/2022 Depression Screening 07/05/2024 Diabetes: Blood Sugar Control Test (HGBA1C) 11/20/2024 05/23/2024, 01/18/2024, 08/10/2019, Additional history exists COVID-19 Vaccine ( season) 2025 04/03/2024, 04/17/2022, 11/19/2021, Additional history exists Influenza Vaccine (#1) 2025 , 03/30/2022, 04/02/2021, Additional history exists Cholesterol Screening (Lipid Panel) 08/13/2025 08/13/2020, 08/10/2019, 10/08/2017 Zoster Vaccines Completed 12/01/2023, 09/24/2023 HIB Vaccines [...] age to complete this topic Insurance MEDICARE [facility] Care Teams Staffing Clerk Relationship Specialty Start Date End Date Gold Callaway MD [address] [place] [address] PCP - General Pulmonary Disease 02/12/21
== END 2025-04-25 13:33 | disposition home or self-care (01) ==
PROVIDERS: PCP Internal Medicine Pulmonary Disease; Visit Provider Internal Medicine Hypertension Specialist
DX: N18.9 Chronic kidney disease, unspecified (principal)
CPT/HCPCS: 99214

== ENCOUNTER → 2025-04-25 13:11 | Outpatient (BNVA) | payer MEDICARE, SELFPAY | PROVIDERS: PCP Internal Medicine Pulmonary Disease; Visit Provider Internal Medicine Hypertension Specialist | DX: N18.30 Chronic kidney disease, stage 3 unspecified (principal); E11.9 Type 2 diabetes mellitus without complications; I10 Essential (primary) hypertension; Z79.84 Long term (current) use of oral hypoglycemic drugs | CPT/HCPCS: 99212 ==